=== PATIENT | female | born 1990 | race Hispanic/Latino ===

== ENCOUNTER 2017-08-28 21:43 | Observation (INO) | payer MEDICAID ==
[~2017-08-28] VITALS: Ht 167.6 cm; Wt 121.1 kg
[2017-08-28 22:20] LABS: APPEARANCE,URINE Turbid (CLEAR); BILIRUBIN,URINE Negative (NEGATIVE); COLOR,URINE Yellow (YELLOW); GLUCOSE, URINE (UA) 250 mg/dL (NEGATIVE); KETONES,URINE Negative (NEGATIVE); LEUKOCYTE ESTERASE ,URINE Moderate (NEGATIVE); NITRATE,URINE Negative (NEGATIVE); OCCULT BLOOD,URINE Negative (NEGATIVE); PH,URINE 6.5 (5.0-8.0); PROTEIN,URINE Trace (NEGATIVE); UROBILINOGEN,URINE 0.2 mg/dL (0.2-1.0)
[2017-08-28 22:24] LABS: AMORPHOUS SEDIMENT,UR Many /LPF (None Seen); BACTERIA,URINE Few /HPF (None Seen); CALCIUM OXALATE CRYSTALS,UR Few /LPF (None Seen); MUCUS,URINE Few LPF (None Seen); RBC,URINE None Seen /HPF (0-1); SQUAMOUS EPITHELIAL CELL,UR 50-100 /LPF (0-2)
[2017-08-28 22:31] VITALS: BP 119/67
[2017-08-28] MEDS ORDERED: PREN1TAB89 PO (22:33)
[2017-08-28] MEDS: LACTATED RINGERS 1000ML 1,000 ML IV PRN (23:30)
[2017-08-28 23:39] LABS: HEMATOCRIT 33.8 % (36-48); MEAN CORPUSCULAR HEMOGLOBIN 30.7 pg (27.0-33.0); MEAN CORPUSCULAR HGB CONC 33.7 g/dL (32.0-36.0); PLATELET COUNT (AUTO) 183 K/uL (130-400); RED BLOOD CELL COUNT(AUTO) 3.72 MIL/uL (4.00-5.50); WHITE BLOOD COUNT (AUTO) 9.8 K/uL (4.8-10.8)
[2017-08-29 00:30] LABS: AMPHET/METH SCREEN,URINE NEGATIVE (NEGATIVE); BARBITURATE SCREEN, URINE NEGATIVE (NEGATIVE); BENZODIAZEPINES SCREEN,URINE NEGATIVE (NEGATIVE); CANNABINOID SCREEN,URINE NEGATIVE (NEGATIVE); COCAINE SCREEN,URINE NEGATIVE (NEGATIVE); OPIATE SCREEN,URINE NEGATIVE (NEGATIVE); PHENCYCLIDINE SCREEN,URINE NEGATIVE (NEGATIVE)
[2017-08-29] MEDS: LACTATED RINGERS 1000ML 1,000 ML IV PRN (01:54)
[2017-08-30 07:29] LABS: HEPATITIS Bs ANTIGEN SCREEN P Negative (Negative)
== END 2017-08-29 08:30 | disposition home or self-care (01) ==
LOC: EDH 21:43 → LDH 21:59
PROVIDERS: ADMIT Obstetrics & Gynecology; ATTEND Obstetrics & Gynecology
DX: O26.893 Other specified pregnancy related conditions, third trimester (principal); R10.9 Unspecified abdominal pain; O22.43 Hemorrhoids in pregnancy, third trimester; O75.82 Onset (spontaneous) of labor after 37 completed weeks of gestation but before 39 completed weeks gestation, with delivery by (planned) cesarean section; Z3A.38 38 weeks gestation of pregnancy
CPT/HCPCS: 36415 ×2; 80305; 81001; 85027; 86592; 86850 ×2; 86900 ×2; 86901 ×2; 87340; 96360; 96361 ×2; 99285; G0378 ×11; J7120 ×2

== ENCOUNTER 2017-08-30 12:31 | Inpatient (IN) | payer MEDICAID ==
[~2017-08-30] VITALS: Ht 167.6 cm; Wt 121.6 kg
[~2017-08-30 12:31] MED LIST: PREN1TAB89 PO
[2017-08-30 13:42] LABS: HEMATOCRIT 35.3 % (36-48); MEAN CORPUSCULAR HEMOGLOBIN 30.8 pg (27.0-33.0); MEAN CORPUSCULAR HGB CONC 33.9 g/dL (32.0-36.0); MEAN CORPUSCULAR VOLUME 90.7 fL (79-99); PLATELET COUNT (AUTO) 196 K/uL (130-400); RED CELL DISTRIBUTION WIDTH 13.9 % (11.0-15.5); WHITE BLOOD COUNT (AUTO) 9.4 K/uL (4.8-10.8)
[2017-08-30] MEDS ORDERED: DINOPROSTONE 10 MG VAGINAL SUPP ONE (13:48)
[2017-08-30] MEDS: LACTATED RINGERS 1000ML 1,000 ML IV PRN ×2 (14:44→20:56)
[2017-08-30] MEDS ORDERED: ACETAMINOPHEN EXTRA STRENGTH 500 MG TABLET PO PRN (20:45)
[2017-08-31] MEDS ORDERED: OXYTOCIN 10 USP UNITS/ML ONE ×2 (00:30→16:32)
[2017-08-31] MEDS ORDERED: OXYTOCIN 10 USP UNITS/ML 20 UNIT in LACTATED RINGERS 1000ML 1,000 ML IV SCH (03:00)
[2017-08-31] MEDS: LACTATED RINGERS 1000ML 1,000 ML IV PRN (04:36)
[2017-08-31] MEDS ORDERED: PROMETHAZINE HCL 25 MG/ML 1ML AMPULE IM SCH (11:30)
[2017-08-31] MEDS ORDERED: MEPERIDINE-PF 50 MG/ML SYG IVP ONE (11:30)
[2017-08-31] MEDS ORDERED: MEPERIDINE-PF 50 MG/ML SYG ONE (11:35)
[2017-08-31] MEDS ORDERED: PROMETHAZINE HCL 25 MG/ML 1ML AMPULE IM ONE (11:35)
[2017-08-31] MEDS ORDERED: CEFAZOLIN SODIUM 1 GM VIAL ONE (15:59)
[2017-08-31] MEDS ORDERED: LACTATED RINGERS 1000ML 1,000 ML IV SCH (16:00)
[2017-08-31] MEDS ORDERED: CEFAZOLIN SODIUM 1 GM VIAL IVP PRN (16:00)
[2017-08-31] MEDS ORDERED: CEFAZOLIN SODIUM 1 GM VIAL IVP ONE (16:30)
[2017-08-31] MEDS ORDERED: OXYTOCIN 10 UNIT/1ML 10ML VIAL ONE (16:32)
[2017-08-31] MEDS ORDERED: LIDOCAINE HCL 2% JELLY 5 ML ONE (16:32)
[2017-08-31] MEDS ORDERED: ROCURONIUM BROMIDE 10MG/1ML 5ML VL ONE (16:32)
[2017-08-31] MEDS ORDERED: PHENYLEPHRINE HCL 10 MG/ML 1ML VIAL IV ONE ×2 (16:32→16:39)
[2017-08-31] MEDS ORDERED: LIDOCAINE HCL-MPF 2% 10ML AMP IJ ONE (16:32)
[2017-08-31] MEDS ORDERED: DEXAMETHASONE SOD PHOSPHATE 10MG/ML 1ML VIAL ONE (16:32)
[2017-08-31] MEDS ORDERED: LIDOCAINE HCL 4% TOP SOL 50ML MM ONE (16:32)
[2017-08-31] MEDS ORDERED: OXYTOCIN-LR 20 UNITS/1000 ML 1,000 ML IV PRN (17:39)
[2017-08-31] MEDS ORDERED: PROMETHAZINE HCL 25 MG/ML 1ML AMPULE IM PRN ×2 (17:45→21:45)
[2017-08-31] MEDS ORDERED: SODIUM CHLORIDE 0.9% 10 ML VIAL IVP PRN (17:45)
[2017-08-31] MEDS ORDERED: MEPERIDINE-PF 75 MG/ML SYG IM PRN (17:45)
[2017-08-31 20:10] VITALS: BP 139/82
[2017-08-31] MEDS ORDERED: DEXTROSE 10%-WATER 250 ML IV STA (20:15)
[2017-08-31] MEDS ORDERED: METOCLOPRAMIDE 10 MG/2 ML VIAL IVP PRN (21:45)
[2017-08-31] MEDS ORDERED: ONDANSETRON HCL 4 MG/2 ML VIAL IVP PRN ×2 (21:45)
[2017-08-31] MEDS ORDERED: NALOXONE HCL 0.4 MG/1 ML ML IVP PRN ×2 (21:45)
[2017-08-31] MEDS ORDERED: HYDROCODONE/ACETAMINOPHEN 5/325 MG TAB PO PRN (21:45)
[2017-08-31] MEDS ORDERED: ONDANSETRON HCL 4 MG/2 ML 8 MG in SODIUM CHLORIDE 0.9% 50 ML IVP NR (21:45)
[2017-08-31] MEDS ORDERED: EPHEDRINE SULFATE 50 MG/ML AMPULE IVP PRN (21:45)
[2017-08-31] MEDS ORDERED: DiphenhydrAMINE HCL 50 MG/ML VIAL IVP PRN (21:45)
[2017-08-31] MEDS ORDERED: MORPHINE SULFATE 2 MG/ML 1ML SYG IVP PRN (21:45)
[2017-08-31] MEDS ORDERED: ROPIVACAINE 0.2%200ML EPIDURAL 200 ML EP SCH (21:45)
[2017-08-31 23:29] VITALS: BP 140/81
[2017-09-01] MEDS: DEXTROSE 5 %-0.45 % NACL 1,000 ML IV PRN ×2 (00:47→07:03)
[2017-09-01] MEDS: HYDROCODONE/ACETAMINOPHEN 5/325 MG TAB PO PRN ×3 (02:09→15:55)
[2017-09-01 03:14] VITALS: BP 135/75
[2017-09-01 06:47] LABS: HEMATOCRIT 32.6 % (36-48); MEAN CORPUSCULAR HEMOGLOBIN 30.2 pg (27.0-33.0); MEAN CORPUSCULAR HGB CONC 33.7 g/dL (32.0-36.0); MEAN CORPUSCULAR VOLUME 89.9 fL (79-99); PLATELET COUNT (AUTO) 181 K/uL (130-400); RED BLOOD CELL COUNT(AUTO) 3.63 MIL/uL (4.00-5.50); RED CELL DISTRIBUTION WIDTH 14.5 % (11.0-15.5); WHITE BLOOD COUNT (AUTO) 13.7 K/uL (4.8-10.8)
[2017-09-01 07:29] LABS: HEPATITIS Bs ANTIGEN SCREEN P Negative (Negative)
[2017-09-01 07:44] VITALS: BP 119/65
[2017-09-01] MEDS ORDERED: ACETAMINOPHEN-CODEINE 300/30MG TAB PO PRN (08:00)
[2017-09-01] MEDS ORDERED: LANOLIN 30GM OINTMENT TP PRN (08:00)
[2017-09-01] MEDS ORDERED: DIPH,PERTUSS(ACELL),TET VAC/PF 0.5 ML VIAL IM SCH (08:00)
[2017-09-01] MEDS ORDERED: BISACODYL 10 MG SUPP.RECT RC PRN (08:00)
[2017-09-01] MEDS: SIMETHICONE 80 MG TAB.CHEW PO PRN ×2 (09:19→12:17)
[2017-09-01] MEDS: DOCUSATE SODIUM 100 MG CAP PO SCH ×2 (09:19→21:00)
[2017-09-01 11:34] VITALS: BP 137/85
[2017-09-01 15:19] VITALS: BP 119/75
[2017-09-01 19:23] VITALS: BP 141/90
[2017-09-01 23:12] VITALS: BP 125/74
[2017-09-02 03:18] VITALS: BP 122/70
[2017-09-02] MEDS: HYDROCODONE/ACETAMINOPHEN 5/325 MG TAB PO PRN ×3 (03:18→12:42)
[2017-09-02 07:27] VITALS: BP 135/85
[2017-09-02] MEDS: SIMETHICONE 80 MG TAB.CHEW PO PRN (08:48)
[2017-09-02] MEDS: DOCUSATE SODIUM 100 MG CAP PO SCH (08:48)
[2017-09-02] MEDS ORDERED: ACET1TAB12 PO (11:02)
[2017-09-02 11:40] VITALS: BP 115/71
== END 2017-09-02 15:10 | disposition home or self-care (01) | DRG 540 ==
LOC: LDH 12:31 → WSH 08-31 20:10 → EDSTATUS 09-07 12:29
PROVIDERS: ADMIT Obstetrics & Gynecology; ATTEND Obstetrics & Gynecology
PROC: 3E033VJ Introduction of Other Hormone into Peripheral Vein, Percutaneous Approach (ICD-10-PCS; 2017-08-31)
PROC: 3E0234Z Introduction of Serum, Toxoid and Vaccine into Muscle, Percutaneous Approach (ICD-10-PCS; 2017-08-31)
PROC: 10D00Z1 Extraction of Products of Conception, Low, Open Approach (ICD-10-PCS; principal; 2017-08-31 16:00)
DX: O99.214 Obesity complicating childbirth (principal); E66.01 Morbid (severe) obesity due to excess calories; O62.2 Other uterine inertia; O36.63X0 Maternal care for excessive fetal growth, third trimester, not applicable or unspecified; Z68.41 Body mass index [BMI] 40.0-44.9, adult; Z3A.39 39 weeks gestation of pregnancy; Z23 Encounter for immunization; Z37.0 Single live birth; Z88.8 Allergy status to other drugs, medicaments and biological substances
CPT/HCPCS: 36415; 59510; 85027; 86592; 87340; 90715; A4344; A4450; A4606; J0690; J1100; J2175; J2370; J2550; J2590; J3490; J7120